=== PATIENT | female | born 1980 | race Caucasian/White ===

== ENCOUNTER 2024-09-13 15:25 | Emergency (ER) | payer MEDICAID ==
[~2024-09-13] VITALS: Ht 160 cm; Wt 81.6 kg
[2024-09-13 15:30] VITALS: O2SAT 98
[2024-09-13] MEDS: KETOROLAC 30MG/ML VIAL IM ONE (18:38)
[2024-09-13] MEDS ORDERED: ACET-2708 MT (19:23)
[2024-09-13] MEDS: DIPHENHYDRAMINE 12.5MG/5ML UDC PO ONE (19:45)
[2024-09-13] MEDS: ONDANSETRON HCL 4MG TABLET PO ONE (19:45)
[2024-09-13 19:50] VITALS: BP 127/85; PULSE 91; RESP 17; TEMP 36.78072; O2SAT 100
== END 2024-09-13 20:00 | disposition home or self-care (01) ==
LOC: ER 15:25
DX: R51.9 Headache, unspecified (principal)
CPT/HCPCS: 81025; 96372; 99283; Q0162; Q0163; J1885; Z7610

== ENCOUNTER → 2025-09-07 | Day surgery (SDC) | payer MEDICAID ==
[~2025-09-07] VITALS: Ht 165.1 cm; Wt 89.8 kg
[~2025-09-07] MED LIST: ACET-2708 MT; BUPIVACAINE HCL/PF 0.5% (5MG/ML) 10ML ONE; CEFAZOLIN SODIUM 1000MG/VIAL ONE; HYDROMORPHONE HCL/PF 1MG/ML INJ IV PRN; LACTATED RINGERS 1,000 ML IV SCH; METOCLOPRAMIDE HCL 10MG/2ML VIAL ONE; ONDANSETRON HCL 4MG/2ML INJ IV PRN; ONDANSETRON HCL 4MG/2ML INJ ONE; PROPOFOL 200MG/20ML VIAL IV ONE; SKIN ADHESIVE 0.7 GM EA TOP ONE
[2025-09-07 08:06] LABS: UCG KIT LOT# 0000994099; UCG SCREEN NEGATIVE
[2025-09-07 08:07] LABS: UCG KIT EXPIRATION DATE 4-8-27
== END | disposition home or self-care (01) ==
LOC: OR 07:28
PROVIDERS: ATTEND Surgery
DX: R22.2 Localized swelling, mass and lump, trunk (principal); Z53.8 Procedure and treatment not carried out for other reasons; Z79.899 Other long term (current) drug therapy
CPT/HCPCS: 81025; J0665; J0690; J2765; J2405; J2704